=== PATIENT | male | born 1980 | race Two or more races ===

== ENCOUNTER 2017-06-09 09:11 | Emergency (ER) | payer MEDICAID ==
[~2017-06-09] VITALS: Ht 177.8 cm; Wt 145.1 kg
[2017-06-09 09:24] VITALS: BP 129/76
[2017-06-09] MEDS ORDERED: HYDROcodone-ACET 10/325MG TAB PO ONE (10:00)
[2017-06-09] MEDS ORDERED: LIDOCAINE 1% (LOCAL ANESTH.) PF 5ml SDV ONE (10:04)
[2017-06-09] MEDS ORDERED: TETANUS-DIPTH-ACEL PERTUSSIS 0.5ML SYRG IM ONE ×2 (12:15→12:16)
== END 2017-06-09 14:15 | disposition home or self-care (01) ==
LOC: ER 09:11 → EDBD 09:11 → ER 14:15
DX: S81.012A Laceration without foreign body, left knee, initial encounter (principal); E11.9 Type 2 diabetes mellitus without complications; I10 Essential (primary) hypertension; V47.5XXA Car driver injured in collision with fixed or stationary object in traffic accident, initial encounter; Y93.89 Activity, other specified; Y92.410 Unspecified street and highway as the place of occurrence of the external cause; Y99.8 Other external cause status
CPT/HCPCS: 12004; 36415; 71045; 73700; 84484; 90471; 90715; 93005